=== PATIENT | female | born 1945 | race American Indian/Alaskan Native ===

== ENCOUNTER 2020-01-04 17:14 | Emergency (ER) | payer MEDICARE ==
[2020-01-04 17:25] VITALS: BP 137/67
--- NOTE | 2020-01-04 17:39 | Emergency Department Report ---
- General Chief Complaint: Upper Respiratory Infection Stated Complaint: COLD SYM Time Seen by Provider: 01/04/20 17:35 Source: patient Mode of arrival: Ambulatory Limitations: No Limitations - History of Present Illness Initial Comments: 74-year-old -Eth[place] female with a past medical history of hypertension GERD asthma and seasonal allergies presents to the emergency room for cough and cold symptoms for a week. Patient reports today she started wheezing and has had to use her nebulizer 2 times today. Patient reports she just been feeling kind of bad for about a week. Patient states that she is not sure if she is feeling back from the anniversary date of her son's or something is wrong with her. Patient denies any fever no nausea no vomiting no diarrhea no abdominal pain. MD Complaint: cough - Related Data Previous Rx's Medication Instructions Recorded Last Taken Type Azithromycin [Zithromax Z-BALJIT] 250 mg PO DAILY #6 tab 01/04/20 Unknown Rx Allergies Allergy/AdvReac Type Severity Reaction Status Date / Time No Known Allergies Allergy Unverified 01/04/20 17:17 ED Review of Systems ROS: Stated complaint: COLD SYM Other details as noted in HPI Comment: All other systems reviewed and negative ED Past Medical Hx - Past Medical History Previous Medical History?: Yes Hx Hypertension: Yes - Surgical History Past Surgical History?: No - Social History Smoking Status: Never Smoker Substance Use Type: Prescribed - Medications Home Medications: Home Medications Medication Instructions Recorded Confirmed Last Taken Type Azithromycin [Zithromax Z-BALJIT] 250 mg PO DAILY #6 tab 01/04/20 Unknown Rx ED Physical Exam - General Limitations: No Limitations General appearance: alert, in no apparent distress - Head Head exam: Present: atraumatic, normocephalic - Eye Eye exam: Present: normal appearance - ENT ENT exam: Present: mucous membranes moist - Respiratory Respiratory exam: Present: decreased breath sounds (Basis) - Cardiovascular Cardiovascular Exam: Present: tachycardia - GI/Abdominal GI/Abdominal exam: Present: soft, normal bowel sounds - Neurological Exam Neurological exam: Present: alert, oriented X3, normal gait - Psychiatric Psychiatric exam: Present: normal affect, normal mood - Skin Skin exam: Present: warm, dry, intact, normal color. Absent: rash ED Course Vital Signs 01/04/20 17:21 Temperature 98.4 F Pulse Rate 94 H Respiratory 20 Rate Blood Pressure 137/67 O2 Sat by Pulse 100 Oximetry ED Medical Decision Making - Lab Data Result diagrams: 01/04/20 17:46 01/04/20 17:46 - Radiology Data Radiology results: report reviewed Referring Physician:MITCHELL BACAPatient Name:SORAYA GRPatient ID:[id number] of :[id number]:FemaleAccession:[id number] Date:9-43[birth year]Sxsdwn Status:Finalized Findings [facility] [address] [place] [address] XRay Report Signed Patient: SORAYA GR MR#: [id number] : 1945 Acct:[id number] Age/Sex: 74 / F ADM Date: 01/04/20 Loc: ED Attending Dr: Ordering Physician: ASHUTOSH QUINTERO Date of Service: 01/04/20 Procedure(s): XR chest routine 2V Accession Number(s): [id number] cc: ASHUTOSH QUINTERO Fluoro Time In Minutes: CHEST 2 VIEWS INDICATION / CLINICAL INFORMATION: Coughing abnormal chest exam. COMPARISON: None available. FINDINGS: SUPPORT DEVICES: None. HEART / MEDIASTINUM: No significant abnormality. LUNGS / PLEURA: Inhomogeneous opacity is identified in the left lower lobe could represent acute pneumonia. No pneumothorax. ADDITIONAL FINDINGS: No significant additional findings. IMPRESSION: 1. Left lower lobe disease, pneumonia is suspected. Signer Name: Juan Manuel Chavez MD Signed: 01/04/2020 6:08 PM Workstation Name: [id number] Transcribed By: ADELA Dictated By: Juan Manuel Chavez MD Electronically Authenticated By: Juan Manuel Chavez MD Signed Date/Time: 01/04/201807 DD/ 07 TD/TT: - Medical Decision Making 74-year-old -Eth[place]ian female with a past medical history of hypertension GERD asthma and seasonal allergies presents to the emergency room for cough and cold symptoms for a week. Patient reports today she started wheezing and has had to use her nebulizer 2 times today. Patient reports she just been feeling kind of bad for about a week. Patient states that she is not sure if she is feeling back from the anniversary date of her son's or something is wrong with her. Patient denies any fever no nausea no vomiting no diarrhea no abdominal pain. Chest x-ray, CBC CMP Chest x-ray shows suspected left lower lung pneumonia labs are stable shows no elevated white count. Will discharge patient home to continue with her nebulizer treatments and place her on a azithromycin for community-acquired pneumonia. Instructed patient return back to the emergency room if she starts to have any worsening cough shortness of breath or fever. Critical care attestation.: If time is entered above; I have spent that time in minutes in the direct care of this critically ill patient, excluding procedure time. ED Disposition Clinical Impression: Community acquired pneumonia of left lower lobe of lung Disposition: DC-01 TO HOME OR SELFCARE Is pt being admited?: No Does the pt Need Aspirin: No Condition: Stable Instructions: Bacterial Pneumonia (ED) Additional Instructions: Continue with her nebulizer treatments and place her on a azithromycin for community-acquired pneumonia. Instructed patient return back to the emergency room if she starts to have any worsening cough shortness of breath or fever. Prescriptions: Azithromycin [Zithromax Z-BALJIT] 250 mg PO DAILY #6 tab Referrals: FABIEN AZEVEDO MD [Staff Physician] - 3-5 Days Your, provider [Other] - 3-5 Days
[2020-01-04 18:11] LABS: Basophils % (Auto) 0.6 % (0.0-1.8); Eosinophils # (Auto) 0.1 K/mm3 (0.0-0.4); Eosinophils % (Auto) 1.4 % (0.0-4.3); Hematocrit 35.3 % (30.3-42.9); Hemoglobin 11.8 gm/dl (10.1-14.3); Lymphocytes # (Auto) 2.5 K/mm3 (1.2-5.4); Lymphocytes % (Auto) 32.5 % (13.4-35.0); Mean Corpuscular HGB Conc 34 % (30-34); Mean Corpuscular Volume 95 fl (79-97); Monocytes # (Auto) 0.4 K/mm3 (0.0-0.8); Monocytes % (Auto) 5.2 % (0.0-7.3); Platelet Count 304 K/mm3 (140-440); Red Blood Count 3.73 M/mm3 (3.65-5.03); Red Cell Distribution Width 14.8 % (13.2-15.2)
[2020-01-04 18:13] LABS: Bilirubin,Urine NEG (Negative); Blood,Urine NEG (Negative); Color,Urine Yellow (Yellow); Mucus,Urine FEW /HPF; Protein,Urine <15 mg/dL mg/dL (Negative); Urobilinogen,Urine < 2.0 mg/dL (<2.0)
--- NOTE | 2020-01-04 18:13 | XRay Report ---
CHEST 2 VIEWS INDICATION / CLINICAL INFORMATION: Coughing abnormal chest exam. COMPARISON: None available. FINDINGS: SUPPORT DEVICES: None. HEART / MEDIASTINUM: No significant abnormality. LUNGS / PLEURA: Inhomogeneous opacity is identified in the left lower lobe could represent acute pneu monia. No pneumothorax. ADDITIONAL FINDINGS: No significant additional findings. IMPRESSION: 1. Left lower lobe disease, pneumonia is suspected. Signer Name: Juan Manuel Chavez MD Signed: 01/04/2020 6:08 PM Workstation Name: [id number]
[2020-01-04 18:33] LABS: Albumin 4.6 g/dL (3.9-5); Calcium 9.6 mg/dL (8.4-10.2)
== END 2020-01-04 19:50 | disposition home or self-care (01) ==
LOC: ED 17:14
DX: J18.9 Pneumonia, unspecified organism (principal); I10 Essential (primary) hypertension; J45.909 Unspecified asthma, uncomplicated; K21.9 Gastro-esophageal reflux disease without esophagitis; Z79.2 Long term (current) use of antibiotics
CPT/HCPCS: 36415; 71046; 80053; 81001; 85025; 87086

== ENCOUNTER 2020-07-19 12:08 | Emergency (ER) | payer MEDICARE ==
[2020-07-19 12:15] VITALS: BP 139/74
--- NOTE | 2020-07-19 13:00 | Event Note ---
ED Screening Note Date of service: 07/19/20 Time: 12:59 ED Screening Note: 75-year-old -[place] female comes in with abdominal pain. This initial assessment/diagnostic orders/clinical plan/treatment(s) is/are subject to change based on patients health status, clinical progression and re- assessment by fellow clinical providers in the ED. Further treatment and workup at subsequent clinical providers discretion. Patient/guardian urged not to elope from the ED as their condition may be serious if not clinically assessed and managed. Initial orders include: Labs have been ordered patient can be evaluated in ACC
[2020-07-19 13:22] LABS: Bilirubin,Urine NEG (Negative); Blood,Urine NEG (Negative); Color,Urine Yellow (Yellow); Mucus,Urine FEW /HPF; Protein,Urine <15 mg/dL mg/dL (Negative)
[2020-07-19 14:38] LABS: Basophils # (Auto) 0.1 K/mm3 (0.0-0.1); Basophils % (Auto) 1.2 % (0.0-1.8); Eosinophils # (Auto) 0.4 K/mm3 (0.0-0.4); Eosinophils % (Auto) 5.5 % (0.0-4.3); Hematocrit 34.2 % (30.3-42.9); Hemoglobin 11.5 gm/dl (10.1-14.3); Lymphocytes # (Auto) 2.6 K/mm3 (1.2-5.4); Lymphocytes % (Auto) 34.6 % (13.4-35.0); Mean Corpuscular HGB Conc 34 % (30-34); Mean Corpuscular Volume 94 fl (79-97); Monocytes # (Auto) 0.4 K/mm3 (0.0-0.8); Monocytes % (Auto) 5.3 % (0.0-7.3); Platelet Count 302 K/mm3 (140-440); Red Blood Count 3.65 M/mm3 (3.65-5.03); Red Cell Distribution Width 13.7 % (13.2-15.2)
[2020-07-19 14:54] LABS: Alanine Aminotransferase 8 units/L (7-56); Albumin 4.1 g/dL (3.9-5); BUN/Creatinine Ratio 11; Blood Urea Nitrogen 11 mg/dL (7-17); Calcium 9.5 mg/dL (8.4-10.2); Hemolysis Index 5
[2020-07-19 15:05] LABS: Bilirubin,Direct < 0.2 mg/dL (0-0.2)
--- NOTE | 2020-07-19 15:23 | Emergency Department Report ---
ED Abdominal Pain HPI - General Chief Complaint: Abdominal Pain Stated Complaint: STOMACH PAIN Time Seen by Provider: 07/19/20 14:43 Source: patient Mode of arrival: Ambulatory Limitations: No Limitations - History of Present Illness Initial Comments: 75-year-old female, history of hypertension, asthma, presents to ED with abdominal pain x2 weeks. Patient states she believes the pain is secondary to stress from living in an apartment with mold. Patient states she was supposed to have moved into a different apartment last month, however that will be happening until the end of this month. Patient states she has been stressed out because of this. She reports some mid abdominal pain. She denies any fever, vomiting, diarrhea. Patient states her appetite has been normal along with normal bowel movements. MD Complaint: abdominal pain -: week(s) (2) Location: epigastric Radiation: none Migration to: no migration Severity: moderate Quality: aching Consistency: intermittent Improves With: nothing Worsens With: nothing Associated Symptoms: denies: nausea, vomiting, diarrhea, fever, constipation, dysuria - Related Data Previous Rx's Medication Instructions Recorded Last Taken Type Azithromycin [Zithromax Z-BALJIT] 250 mg PO DAILY #6 tab 01/04/20 Unknown Rx hydrOXYzine PAMOATE [Vistaril] 25 mg PO Q6HR PRN #12 capsule 06/01/20 Unknown Rx Esomeprazole Magnesium [NexIUM] 40 mg PO QDAY #30 capsule. 07/19/20 Unknown Rx Sulfamethoxazole/Trimethoprim 1 each PO BID #6 tablet 07/19/20 Unknown Rx [Bactrim DS TAB] Allergies Allergy/AdvReac Type Severity Reaction Status Date / Time No Known Allergies Allergy Unverified 01/04/20 17:17 ED Review of Systems ROS: Stated complaint: STOMACH PAIN Other details as noted in HPI Comment: All other systems reviewed and negative Constitutional: denies: chills, fever Gastrointestinal: abdominal pain. denies: nausea, vomiting, diarrhea, constipation Genitourinary: denies: dysuria, frequency ED Past Medical Hx - Past Medical History Previous Medical History?: Yes Hx Hypertension: Yes Hx of Cancer: Yes (poss uterine) Additional medical history: Hard of hearing, Gastric ulcers - Surgical History Past Surgical History?: No - Social History Smoking Status: Never Smoker Substance Use Type: Prescribed - Medications Home Medications: Home Medications Medication Instructions Recorded Confirmed Last Taken Type Azithromycin [Zithromax Z-BALJIT] 250 mg PO DAILY #6 tab 01/04/20 Unknown Rx hydrOXYzine PAMOATE [Vistaril] 25 mg PO Q6HR PRN #12 capsule 06/01/20 Unknown Rx Esomeprazole Magnesium [NexIUM] 40 mg PO QDAY #30 capsule. 07/19/20 Unknown Rx Sulfamethoxazole/Trimethoprim 1 each PO BID #6 tablet 07/19/20 Unknown Rx [Bactrim DS TAB] ED Physical Exam - General Limitations: No Limitations General appearance: alert, in no apparent distress - Head Head exam: Present: atraumatic, normocephalic - Eye Eye exam: Present: normal appearance, EOMI - ENT ENT exam: Present: mucous membranes moist - Neck Neck exam: Present: normal inspection - Respiratory Respiratory exam: Present: normal lung sounds bilaterally. Absent: respiratory distress - Cardiovascular Cardiovascular Exam: Present: regular rate, normal rhythm - GI/Abdominal GI/Abdominal exam: Present: soft, tenderness (mild epigastric). Absent: distend ed - Extremities Exam Extremities exam: Present: normal inspection - Neurological Exam Neurological exam: Present: alert, oriented X3 - Psychiatric Psychiatric exam: Present: normal affect, normal mood - Skin Skin exam: Present: warm, dry, intact, normal color ED Course Vital Signs 07/19/20 12:12 Temperature 98.8 F Pulse Rate 88 Respiratory 15 Rate Blood Pressure 139/74 O2 Sat by Pulse 98 Oximetry ED Medical Decision Making - Lab Data Result diagrams: 07/19/20 14:28 07/19/20 14:28 - Radiology Data Radiology results: report reviewed, image reviewed - Medical Decision Making 75-year-old female with epigastric pain x2 weeks. Vital signs are normal. Labs are unremarkable. CT scan shows findings which may reflect gastritis. Patient was given a GI cocktail here in ED and reports relief of her pain. Patient will be discharged at this time. Advised outpatient follow-up with GI. Prescriptions will be given. Return precautions given. - Differential Diagnosis Gastritis, pancreatitis, cholecystitis Critical care attestation.: If time is entered above; I have spent that time in minutes in the direct care of this critically ill patient, excluding procedure time. ED Disposition Clinical Impression: Gastritis Disposition: DC-01 TO HOME OR SELFCARE Is pt being admited?: No Condition: Stable Instructions: Gastritis, Adult, [id number], Urinary Tract Infection, Adult, Abdominal Pain (ED) Prescriptions: Sulfamethoxazole/Trimethoprim [Bactrim DS TAB] 1 each PO BID #6 tablet Esomeprazole Magnesium [NexIUM] 40 mg PO QDAY #30 capsule. Referrals: PRIMARY CARE, [Primary Care Provider] - 3-5 Days [facility] [Provider Group] - 3-5 Days [facility] [Provider Group] - 3-5 Days Time of Disposition: 16:58
[2020-07-19] MEDS ORDERED: ALUM-MAG HYDROXIDE-SIMETHICONE 200-200-20MG/5ML ORAL LIQD 30 ML PO ONE (15:26)
[2020-07-19] MEDS ORDERED: LIDOCAINE VISCOUS 2% 15 ML ORAL LIQD PO ONE (15:26)
--- NOTE | 2020-07-19 16:38 | Cat Scan Report ---
CT ABDOMEN AND PELVIS WITHOUT CONTRAST INDICATION / CLINICAL INFORMATION: Abdominal pain. TECHNIQUE: Axial CT images were obtained through the abdomen and pelvis without IV contrast. All CT scans at [facility] location are performed using CT dose reduction for ALARA by means of automated exposure control. COMPARISON: Chest radiograph 01/04/2020 FINDINGS: LOWER CHEST: Bronchiectasis with peribronchial thickening and tree-in-bud nodularity within the left greater than right visualized lower lobes. This appears similar in distribution and extent to the pre viously seen opacity on prior radiograph from 12/2019. LIVER: No significant abnormality. GALLBLADDER: No significant abnormality. BILE DUCTS: No significant abnormality. PANCREAS: No significant abnormality. SPLEEN: No significant abnormality. ADRENALS: No significant abnormality. RIGHT KIDNEY and URETER: No significant abnormality. LEFT KIDNEY and URETER: No significant abnormality. STOMACH and SMALL BOWEL: There is prominent wall thickening involving the distal gastric body/pylorus region, with minimal adjacent stranding. Remaining small bowel is unremarkable in appearance. COLON: No significant abnormality. APPENDIX: No significant abnormality. PERITONEUM: No free fluid. No free air. No fluid collection. LYMPH NODES: No significant adenopathy. AORTA and ARTERIES: No significant abnormality. IVC and VEINS: No significant abnormality. URINARY BLADDER: No significant abnormality. REPRODUCTIVE ORGANS: Prior hysterectomy. No adnexal mass. ADDITIONAL FINDINGS: Multiple surgical clips in the pelvis. SKELETAL SYSTEM: Mild age-indeterminate wedge compression deformities of T11 and T12. IMPRESSION: 1. Prominent wall thickening involving the distal gastric body/pylorus with mild adjacent stranding m ay reflect gastritis, though upper endoscopy could be performed for further evaluation. No extralumin al air or fluid collection to suggest a perforated ulcer. 2. Bronchiectasis and peribronchial thickening with tree-in-bud nodularity in the left greater than r ight lower lobes. This appears similar in distribution to the previous opacity on chest radiograph fr om 12/2019, suggesting a chronic process, though clinical correlation is recommended. 3. Mild age-indeterminate wedge compression of T11 and T12. Signer Name: Gabby Alegria MD Signed: 07/19/2020 4:33 PM Workstation Name: [id number]
== END 2020-07-19 17:35 | disposition home or self-care (01) ==
LOC: ED 12:08
DX: K29.70 Gastritis, unspecified, without bleeding (principal); I10 Essential (primary) hypertension; Z79.2 Long term (current) use of antibiotics; Z79.899 Other long term (current) drug therapy
CPT/HCPCS: 36415; 74176; 80048; 80076; 81001; 83690; 85025; 87086

== ENCOUNTER 2020-10-19 12:33 | Emergency (ER) | payer MEDICARE ==
--- NOTE | 2020-10-19 12:45 | Event Note ---
ED Screening Note ED Screening Note: pt presents for epigastric abd pain that began a week ago she states it worsened since yesterday no n/v/d no fever no urinary symptoms she reports normal BMs no allergies to meds PMHx HTN, asthma, "nerve problem" non smoker This initial assessment/diagnostic orders/clinical plan/treatment(s) is/are subject to change based on patients health status, clinical progression and re- assessment by fellow clinical providers in the ED. Further treatment and workup at subsequent clinical providers discretion. Patient/guardian urged not to elope from the ED as their condition may be serious if not clinically assessed and managed. Initial orders include: labs, UA, XR, EKG
--- NOTE | 2020-10-19 13:35 | XRay Report ---
ABDOMINAL SERIES WITH CHEST X-RAY ONE VIEW HISTORY: Epigastric abdominal pain COMPARISON: None. FINDINGS: Chronic interstitial markings at the left lung base are unchanged since chest x-ray dated 01/04/2020. Otherwise the lungs are clear. Heart size is within normal limits. Supine and upright views the abdomen demonstrate no evidence for dilated bowel, fluid levels or free air. There is mild fecal retention in the colon. Surgical clips are noted in both sides of the pelvis , correlate with history. Signer Name: Saud Austin Jr, MD Signed: 10/19/2020 1:31 PM Workstation Name: [id number]
[2020-10-19 13:49] LABS: Basophils % (Auto) 0.6 % (0.0-1.8); Eosinophils % (Auto) 13.3 % (0.0-4.3); Hematocrit 32.7 % (30.3-42.9); Hemoglobin 11.5 gm/dl (10.1-14.3); Lymphocytes # (Auto) 2.5 K/mm3 (1.2-5.4); Lymphocytes % (Auto) 32.4 % (13.4-35.0); Mean Corpuscular HGB Conc 35 % (30-34); Mean Corpuscular Volume 93 fl (79-97); Monocytes # (Auto) 0.4 K/mm3 (0.0-0.8); Monocytes % (Auto) 4.7 % (0.0-7.3); Platelet Count 318 K/mm3 (140-440); Red Cell Distribution Width 14.3 % (13.2-15.2)
[2020-10-19 14:12] LABS: Alanine Aminotransferase 7 units/L (7-56); Albumin 4.1 g/dL (3.9-5); BUN/Creatinine Ratio 12; Blood Urea Nitrogen 12 mg/dL (7-17); Calcium 9.6 mg/dL (8.4-10.2); Hemolysis Index 0
[2020-10-19] MEDS ORDERED: ONDANSETRON 4 MG/2 ML INJ IV ONE (14:26)
[2020-10-19] MEDS ORDERED: MORPHINE 4 MG/1 ML INJ IV ONE (14:26)
[2020-10-19] MEDS ORDERED: FAMOTIDINE 20 MG/2 ML INJ IV ONE (14:27)
[2020-10-19 14:28] LABS: Bilirubin,Urine NEG (Negative); Blood,Urine NEG (Negative); Color,Urine Straw (Yellow); Protein,Urine <15 mg/dL mg/dL (Negative); RBC,Urine < 1.0 /HPF (0.0-6.0); Urobilinogen,Urine < 2.0 mg/dL (<2.0); WBC,Urine < 1.0 /HPF (0.0-6.0)
--- NOTE | 2020-10-19 14:32 | Emergency Department Report ---
ED Abdominal Pain HPI - General Chief Complaint: Abdominal Pain Stated Complaint: ABD PAIN Time Seen by Provider: 10/19/20 12:43 Source: patient, old records reviewed Mode of arrival: Ambulatory Limitations: No Limitations - History of Present Illness Initial Comments: 75-year-old female with a past medical history of gastritis identified on CT July 2020, hypertension, and hard of hearing presents to the hospital with complaints of epigastric pain since last week. Pain was initially intermittent but more constant last several days. Last week patient had several episodes of vomiting. She denies hematemesis, hematochezia, melena, fever, diarrhea, or dysuria. She currently takes Tylenol pain relievers as needed and denies NSAID use. When patient was here in July [address] abd/pelvis revealed Prominent wall thickening involving the distal gastric body/pylorus with mild adjacent stranding may reflect gastritis, though upper endoscopy could be performed for further evaluation. No extraluminal air or fluid collection to suggest a perforated ulcer2. Bronchiectasis and peribronchial thickening with tree-in-bud nodularity in the left greater than right lower lobes. This appears similar in distribution to the previous opacity on chest radiograph from 12/2019, suggesting a chronic process, though clinical correlation is recommended. 3. Mild age-indeterminate wedge compression of T11 and T12. Patient was discharged on Nexium x30 days. Patient has been unable to follow-up with PMD or GI physician since ED visit and is not currently taking any PPI or H2 bessy. Patient states she has had a previous hysterectomy with with questionable uterine cancer. Severity scale (0 -10): 7 - Related Data Previous Rx's Medication Instructions Recorded Last Taken Type Azithromycin [Zithromax Z-BALJIT] 1 dose PO DAILY 5 Days tab 10/19/20 Unknown Rx Mag Hydrox/Aluminum Hyd/Simeth 20 ml PO QID PRN #1 bottle 10/19/20 Unknown Rx [Maalox Advanced Suspension] Omeprazole Magnesium [PriLOSEC Otc] 20 mg PO QDAY #30 tablet. 10/19/20 Unknown Rx Ondansetron [Zofran Odt] 4 mg PO Q8HR PRN #20 tab.rapdis 10/19/20 Unknown Rx traMADoL [Ultram 50 MG tab] 50 mg PO Q6HR PRN #10 tablet 10/19/20 Unknown Rx Allergies Allergy/AdvReac Type Severity Reaction Status Date / Time No Known Allergies Allergy Verified 10/19/20 14:08 ED Review of Systems ROS: Stated complaint: ABD PAIN Other details as noted in HPI Comment: All other systems reviewed and negative ED Past Medical Hx - Past Medical History Previous Medical History?: Yes Hx Hypertension: Yes Additional medical history: Hard of hearing, Gastric ulcers - Surgical History Past Surgical History?: Yes Additional Surgical History: Hysterectomy - Social History Smoking Status: Never Smoker Substance Use Type: None - Medications Home Medications: Home Medications Medication Instructions Recorded Confirmed Last Taken Type Azithromycin [Zithromax Z-BALJIT] 1 dose PO DAILY 5 Days tab 10/19/20 Unknown Rx Mag Hydrox/Aluminum Hyd/Simeth 20 ml PO QID PRN #1 bottle 10/19/20 Unknown Rx [Maalox Advanced Suspension] Omeprazole Magnesium [PriLOSEC Otc] 20 mg PO QDAY #30 tablet. 10/19/20 Unknown Rx Ondansetron [Zofran Odt] 4 mg PO Q8HR PRN #20 tab.rapdis 10/19/20 Unknown Rx traMADoL [Ultram 50 MG tab] 50 mg PO Q6HR PRN #10 tablet 10/19/20 Unknown Rx ED Physical Exam - General Limitations: No Limitations - Other Other exam information: General: No acute distress Head: Atraumatic Eyes: normal appearance ENT: Moist mucous membranes Neck: Normal appearance, no midline tenderness Chest: Clear to auscultation bilaterally CV: Regular rate and rhythm Abdomen: Soft, normal bowel sounds, epigastric tenderness, nondistended, no rebound or guarding Back: Normal inspection Extremity: Normal inspection, full range of motion Neuro: Alert O x 3, no facial asymmetry, speech clear, no gross motor sensory deficit Psych: Appropriate behavior Skin: No rash ED Course Vital Signs 10/19/20 10/19/20 10/19/20 12:41 14:03 14:04 Temperature 99.6 F Pulse Rate 88 78 Respiratory 18 18 18 Rate Blood Pressure 149/74 [Left] Blood Pressure 174/87 [Right] O2 Sat by Pulse 100 100 100 Oximetry 10/19/20 10/19/20 15:02 15:31 Temperature Pulse Rate 89 78 Respiratory 18 16 Rate Blood Pressure [Left] Blood Pressure 178/80 183/89 [Right] O2 Sat by Pulse 97 100 Oximetry ED Medical Decision Making - Lab Data Result diagrams: 10/19/20 13:22 10/19/20 13:22 Lab Results 10/19/20 10/19/20 10/19/20 Range/Units 13:22 13:22 14:04 WBC 7.8 (4.5-11.0) K/mm3 RBC 3.50 L (3.65-5.03) M/mm3 Hgb 11.5 (10.1-14.3) gm/dl Hct 32.7 (30.3-42.9) % MCV 93 (79-97) fl MCH 33 H (28-32) pg MCHC 35 H (30-34) % RDW 14.3 (13.2-15.2) % Plt Count 318 (140-440) K/mm3 Lymph % (Auto) 32.4 (13.4-35.0) % [place] % (Auto) 4.7 (0.0-7.3) % Eos % (Auto) 13.3 H (0.0-4.3) % Baso % (Auto) 0.6 (0.0-1.8) % Lymph # (Auto) 2.5 (1.2-5.4) K/mm3 [place] # (Auto) 0.4 (0.0-0.8) K/mm3 Eos # (Auto) 1.0 H (0.0-0.4) K/mm3 Baso # (Auto) 0.0 (0.0-0.1) K/mm3 Seg Neutrophils % 49.0 (40.0-70.0) % Seg Neutrophils # 3.8 (1.8-7.7) K/mm3 Sodium 138 (137-145) mmol/L Potassium 5.1 H (3.6-5.0) mmol/L Chloride 101.7 (98-107) mmol/L Carbon Dioxide 28 (22-30) mmol/L Anion Gap 13 mmol/L BUN 12 (7-17) mg/dL Creatinine 1.0 (0.6-1.2) mg/dL Estimated GFR > 60 ml/min BUN/Creatinine Ratio 12 % Glucose 87 (65-100) mg/dL Calcium 9.6 (8.4-10.2) mg/dL Total Bilirubin 0.60 (0.1-1.2) mg/dL AST 15 (5-40) units/L ALT 7 (7-56) units/L Alkaline Phosphatase 75 (35-129) units/L Troponin T < 0.010 (0.00-0.029) ng/mL Total Protein 6.9 (6.3-8.2) g/dL Albumin 4.1 (3.9-5) g/dL Albumin/Globulin Ratio 1.5 % Lipase 45 (13-60) units/L Urine Color Straw (Yellow) Urine Turbidity Clear (Clear) Urine pH 7.0 (5.0-7.0) Ur Specific [place] 1.006 (1.003-1.030) Urine Protein <15 mg/dl (Negative) mg/dL Urine Glucose (UA) Neg (Negative) mg/dL Urine Ketones Neg (Negative) mg/dL Urine Blood Neg (Negative) Urine Nitrite Neg (Negative) Urine Bilirubin Neg (Negative) Urine Urobilinogen < 2.0 (<2.0) mg/dL Ur Leukocyte Esterase Neg (Negative) Urine WBC (Auto) < 1.0 (0.0-6.0) /HPF Urine RBC (Auto) < 1.0 (0.0-6.0) /HPF - EKG Data -: EKG Interpreted by Me ([facility]) EKG shows normal: sinus rhythm, ST-T waves (no stemi) Rate: normal - Radiology Data Radiology results: report reviewed ABDOMINAL SERIES WITH CHEST X-RAY ONE VIEW HISTORY: Epigastric abdominal pain COMPARISON: None. FINDINGS: Chronic interstitial markings at the left lung base are unchanged since chest x- ray dated 01/04/2020. Otherwise the lungs are clear. Heart size is within normal limits. Supine and upright views the abdomen demonstrate no evidence for dilated bowel, fluid levels or free air. There is mild fecal retention in the colon. Surgical clips are noted in both sides of the pelvis, correlate with history. CT ABDOMEN AND PELVIS WITH CONTRAST HISTORY: Epigastric pain COMPARISON: 07/19/2020 TECHNIQUE: Axial CT images were obtained through the abdomen and pelvis after 100 cc of IV contrast. Sagittal and coronal reformatted images. All CT scans at this location are performed using CT dose reduction for ALARA by means of automated exposure control. FINDINGS: CT ABDOMEN: Lung Bases: Patchy infiltrates have developed at both lung bases, left greater than right. No pleural effusion. Heart size is within normal limits. Liver: No significant abnormality. Biliary: No significant abnormality. Spleen: No significant abnormality. Unenlarged. Pancreas: No significant abnormality. Adrenals: No significant abnormality. Kidneys: No significant abnormality. Lymphatics: A mildly enlarged celiac axis lymph node measures 1.7 x 1.1 cm. No other adenopathy. Vasculature: No significant abnormality. Bowel/Peritoneum: A small hiatal hernia is identified. There is moderate diffuse thickening of the gastric antrum. The gastric wall measures up to 1.5 cm in thickness. No d iscrete mass, ulceration, free fluid or free air is detected. The small bowel loops and colon are normal caliber. A few scattered diverticula are noted in the right hemicolon. Normal appendix. CT PELVIS: : Hysterectomy. The bladder and distal ureters are unremarkable. Osseous Structures: Mild osteopenia. Degenerative changes in the lumbar spine. Additional Findings: None IMPRESSION: Diffuse thickening of the distal stomach suggesting antral gastritis. No focal ulceration or mass is appreciated. Mildly enlarged celiac axis lymph node. Bibasilar infiltrates, left greater than right. Correlate for pneumonia or aspiration. - Medical Decision Making 75-year-old female presents to the hospital planing of epigastric pain since last week with episodes of nausea vomiting last week that has since resolved. She does not report GI bleeding symptoms. CBC normal without anemia or leukocytosis. CMP including LFTs and lipase within normal range UA unrem arkable. In July patient had a scan showing gastritis which appears to persist as shown on today's CT scan. No signs of gastric ulcer perforation. Patient is not currently on a PPI, H2 bessy, or any stomach medication. Once again patient is noted to have bibasilar infiltrates left greater than right which have been previously called chronic processes. Patient reports a chronic cough that is unchanged without fever or shortness of breath. In the ED she was treated with morphine, Zofran, and Pepcid and subsequently Maalox and viscous lidocaine p.o. once CT resulted. Patient will be discharged on PPI nausea medication with intermittent Maalox as needed with instructions to follow-up with GI for endoscopy and further treatment. I have suspect that pulmonary findings of chronic given previous CAT scan results. Patient be covered with azithromycin x5 days given age and given that the CT reading has been compared to previous as per radiology note. Outpatient pulmonology referral provided. patient does not currently take NSAIDs and will be encouraged to continue Tylenol as needed. Critical Care Time: No Critical care attestation.: If time is entered above; I have spent that time in minutes in the direct care of this critically ill patient, excluding procedure time. ED Disposition Clinical Impression: Antral gastritis, Pulmonary infiltrate, Nausea and vomiting, Chronic cough Disposition: TO HOME OR SELFCARE Is pt being admited?: No Does the pt Need Aspirin: No Condition: Stable Instructions: Cough, Adult, [id number], Incidental Abnormal Radiological Finding, Gastritis, Adult, Abdominal Pain (ED) Additional Instructions: Take the medication as prescribed. Follow-up with your doctor or doctor/clinic provided. Make sure you follow-up with a GI doctor for further testing including endoscopy as discussed. When you run out of your Prilosec prescription you may take the [id number] version until you can receive a refill from your doctor. Return if symptoms worsen as indicated by your discharge instructions. Your CAT and x-rays today reveal possible pulmonary infiltrate/scarring of the lungs. Will cover with antibiotics today for infection due to your persistent cough. Follow-up with your doctor and embedder/lung specialist provided for further evaluation Prescriptions: Mag Hydrox/Aluminum Hyd/Simeth [Maalox Advanced Suspension] 20 ml PO QID PRN #1 bottle PRN Reason: Indigestion Omeprazole Magnesium [PriLOSEC Otc] 20 mg PO QDAY #30 tablet. traMADoL [Ultram 50 MG tab] 50 mg PO Q6HR PRN #10 tablet PRN Reason: Pain , Severe (7-10) Azithromycin [Zithromax Z-BALJIT] 1 dose PO DAILY 5 Days tab Ondansetron [Zofran Odt] 4 mg PO Q8HR PRN #20 tab.rapdis PRN Reason: Nausea And Vomiting Referrals: PRIMARY CARE, [Primary Care Provider] - 3-5 Days PENG LEON MD [Staff Physician] - 3-5 Days (GI doctor) SONJA SHELTON MD [Staff Physician] - 7-10 days (Lung specialist/embedder) Time of Disposition: 15:34
--- NOTE | 2020-10-19 15:04 | Cat Scan Report ---
CT ABDOMEN AND PELVIS WITH CONTRAST HISTORY: Epigastric pain COMPARISON: 07/19/2020 TECHNIQUE: Axial CT images were obtained through the abdomen and pelvis after 100 cc of IV contrast. Sagittal and coronal reformatted images. All CT scans at this location are performed using CT dose re duction for ALARA by means of automated exposure control. FINDINGS: CT ABDOMEN: Lung Bases: Patchy infiltrates have developed at both lung bases, left greater than right. No pleural effusion. Heart size is within normal limits. Liver: No significant abnormality. Biliary: No significant abnormality. Spleen: No significant abnormality. Unenlarged. Pancreas: No significant abnormality. Adrenals: No significant abnormality. Kidneys: No significant abnormality. Lymphatics: A mildly enlarged celiac axis lymph node measures 1.7 x 1.1 cm. No other adenopathy. Vasculature: No significant abnormality. Bowel/Peritoneum: A small hiatal hernia is identified. There is moderate diffuse thickening of the ga stric antrum. The gastric wall measures up to 1.5 cm in thickness. No discrete mass, ulceration, free fluid or free air is detected. The small bowel loops and colon are normal caliber. A few scattered d iverticula are noted in the right hemicolon. Normal appendix. CT PELVIS: : Hysterectomy. The bladder and distal ureters are unremarkable. Osseous Structures: Mild osteopenia. Degenerative changes in the lumbar spine. Additional Findings: None IMPRESSION: Diffuse thickening of the distal stomach suggesting antral gastritis. No focal ulceration or mass is appreciated. Mildly enlarged celiac axis lymph node. Bibasilar infiltrates, left greater than right. Correlate for pneumonia or aspiration. Signer Name: Saud Austin Jr, MD Signed: 10/19/2020 2:59 PM Workstation Name: [id number]
[2020-10-19] MEDS ORDERED: LIDOCAINE VISCOUS 2% 15 ML ORAL LIQD PO ONE (15:09)
[2020-10-19] MEDS ORDERED: ALUM-MAG HYDROXIDE-SIMETHICONE 200-200-20MG/5ML ORAL LIQD 30 ML PO ONE (15:09)
[2020-10-19 15:32] VITALS: BP 183/89
== END 2020-10-19 16:15 | disposition home or self-care (01) ==
LOC: ED 12:33
DX: K29.60 Other gastritis without bleeding (principal); R91.8 Other nonspecific abnormal finding of lung field; R11.2 Nausea with vomiting, unspecified; R05 Cough; I10 Essential (primary) hypertension; Z90.710 Acquired absence of both cervix and uterus; Z79.2 Long term (current) use of antibiotics; Z79.899 Other long term (current) drug therapy
CPT/HCPCS: 36415; 74022; 74177; 80053; 81001; 83690; 84484; 85025; 93005; 96374; 96375; 99285; J2270; J2405; Q9967

== ENCOUNTER 2021-05-08 20:10 | Emergency (ER) | payer MEDICARE ==
[2021-05-09 00:22] VITALS: BP 145/70
[2021-05-09] MEDS ORDERED: AMOXICILLIN/K CLAV 875/125MG TAB PO ONE (00:43)
[2021-05-09] MEDS ORDERED: ONDANSETRON 4 MG ODT TAB PO ONE (00:44)
[2021-05-09] MEDS ORDERED: IBUPROFEN 600 MG TAB PO ONE (00:44)
[2021-05-09] MEDS ORDERED: oxyCODONE /ACETAMINOPHEN 5-325MG TAB PO ONE (00:44)
[2021-05-09] MEDS ORDERED: FAMOTIDINE 20 MG TAB PO ONE (01:18)
--- NOTE | 2021-05-09 01:24 | Emergency Department Report ---
ED General Adult HPI - General Chief complaint: Earache Stated complaint: RT EARACHE/HEAD PAIN Source: patient Mode of arrival: Ambulatory Limitations: No Limitations - History of Present Illness Initial comments: Patient is a 75-year-old -[place] female with a history of gastric ulcers and hypertension as well as GERD who presents to the ED with complaint of acute onset persistent severe right ear pain for the last 2 days worse in the last 12 hours. Patient states that she has been taking over the counter Tylenol extra strength with no relief. Patient denies dizziness, syncope, headache, fever, chills, nasal and sinus congestion, traumatic injury, hearing loss, change in vision, sore throat, toothache, chest pain or shortness of breath and neck pain. MD Complaint: Right ear pain -: Sudden, days(s) (2) Location: face (right ear pain) Radiation: non-radiation Severity scale (0 -10): 7 Quality: aching, sharp Consistency: constant Improves with: none Worsens with: none Associated Symptoms: denies other symptoms. denies: confusion, chest pain, cough, diaphoresis, fever/chills, headaches, loss of appetite, malaise, nausea/vomiting, rash, seizure, shortness of breath, syncope, weakness, other Treatments Prior to Arrival: NSAID - Related Data Previous Rx's Medication Instructions Recorded Last Taken Type Azithromycin [Zithromax Z-BALJIT] 1 dose PO DAILY 5 Days tab 10/19/20 Unknown Rx Mag Hydrox/Aluminum Hyd/Simeth 20 ml PO QID PRN #1 bottle 10/19/20 Unknown Rx [Maalox Advanced Suspension] Omeprazole Magnesium [PriLOSEC Otc] 20 mg PO QDAY #30 tablet. 10/19/20 Unknown Rx Ondansetron [Zofran Odt] 4 mg PO Q8HR PRN #20 tab.rapdis 10/19/20 Unknown Rx Amoxicillin/Potassium Clav 1 each PO Q12H #20 tablet 05/09/21 Unknown Rx [Augmentin 875-125 Tablet] Ofloxacin 0.3% [Floxin 0.3% Otic] 1 - 2 drop OT BID #5 ml 05/09/21 Unknown Rx traMADoL [Ultram 50 MG tab] 50 mg PO Q6HR PRN #15 tablet 05/09/21 Unknown Rx Allergies Allergy/AdvReac Type Severity Reaction Status Date / Time No Known Allergies Allergy Verified 10/19/20 14:08 ED Review of Systems ROS: Stated complaint: RT EARACHE/HEAD PAIN Other details as noted in HPI Constitutional: denies: chills, fever Eyes: denies: eye pain, eye discharge, vision change ENT: ear pain (Severe right ear pain). denies: throat pain Respiratory: denies: cough, shortness of breath, wheezing Cardiovascular: denies: chest pain, palpitations Endocrine: no symptoms reported Gastrointestinal: denies: abdominal pain, nausea, diarrhea Genitourinary: denies: urgency, dysuria, discharge Musculoskeletal: denies: back pain, joint swelling, arthralgia Skin: denies: rash, lesions Neurological: denies: headache, weakness, paresthesias Psychiatric: denies: anxiety, depression Hematological/Lymphatic: denies: easy bleeding, easy bruising ED Past Medical Hx - Past Medical History Previous Medical History?: Yes Hx Hypertension: Yes Additional medical history: Hard of hearing, Gastric ulcers - Surgical History Past Surgical History?: Yes Additional Surgical History: Hysterectomy - Social History Smoking Status: Never Smoker Substance Use Type: None - Medications Home Medications: Home Medications Medication Instructions Recorded Confirmed Last Taken Type Azithromycin [Zithromax Z-BALJIT] 1 dose PO DAILY 5 Days tab 10/19/20 Unknown Rx Mag Hydrox/Aluminum Hyd/Simeth 20 ml PO QID PRN #1 bottle 10/19/20 Unknown Rx [Maalox Advanced Suspension] Omeprazole Magnesium [PriLOSEC Otc] 20 mg PO QDAY #30 tablet. 10/19/20 Unknown Rx Ondansetron [Zofran Odt] 4 mg PO Q8HR PRN #20 tab.rapdis 10/19/20 Unknown Rx Amoxicillin/Potassium Clav 1 each PO Q12H #20 tablet 05/09/21 Unknown Rx [Augmentin 875-125 Tablet] Ofloxacin 0.3% [Floxin 0.3% Otic] 1 - 2 drop OT BID #5 ml 05/09/21 Unknown Rx traMADoL [Ultram 50 MG tab] 50 mg PO Q6HR PRN #15 tablet 05/09/21 Unknown Rx ED Physical Exam - General Limitations: No Limitations General appearance: alert, in no apparent distress - Head Head exam: Present: atraumatic, normocephalic, normal inspection - Eye Eye exam: Present: normal appearance, PERRL, EOMI Pupils: Present: normal accommodation - ENT ENT exam: Present: normal orophraynx, mucous membranes moist, normal external ear exam, other (Mild erythematous bulging right tympanic membrane) - Neck Neck exam: Present: normal inspection, full ROM, lymphadenopathy (Palpable tenderness of anterior right cervical lymphadenopathy) - Respiratory Respiratory exam: Present: normal lung sounds bilaterally. Absent: respiratory distress, wheezes, rales, rhonchi, chest wall tenderness, accessory muscle use, prolonged expiratory - Cardiovascular Cardiovascular Exam: Present: regular rate, normal rhythm, normal heart sounds. Absent: systolic murmur, diastolic murmur, rubs, gallop - GI/Abdominal GI/Abdominal exam: Present: soft, normal bowel sounds. Absent: tenderness, guarding, rebound, hyperactive bowel sounds, hypoactive bowel sounds - Extremities Exam Extremities exam: Present: normal inspection, full ROM, normal capillary refill - Back Exam Back exam: Present: normal inspection, full ROM. Absent: tenderness, CVA tenderness (R), CVA tenderness (L), muscle spasm, paraspinal tenderness, vertebral tenderness - Neurological Exam Neurological exam: Present: alert, oriented X3, CN II-XII intact, normal gait, reflexes normal - Psychiatric Psychiatric exam: Present: normal affect, normal mood - Skin Skin exam: Present: warm, dry, intact, normal color. Absent: rash ED Course Vital Signs 05/09/21 00:21 Temperature 98.2 F Pulse Rate 67 Respiratory 16 Rate Blood Pressure 145/70 [Right] O2 Sat by Pulse 99 Oximetry ED Medical Decision Making - Medical Decision Making This is a 75-year-old -[place] female with a history of gastric ulcers and hypertension as well as GERD who presents to the ED with complaint of acute onset persistent severe right ear pain for the last 2 days worse in the last 12 hours. Patient states that she has been taking over the counter Tylenol extra strength with no relief. In the ED, patient is alert and oriented x3 and is not in any distress. Patient is hemodynamically stable, but appears to be in significant pain. Patient was treated for pain in the ED and given initial oral antibiotics in the ED. On reevaluation, patient's pain is well controlled medications. Patient will discharge home on pain medications and antibiotics and advised to follow-up with her primary care physician in 5 to 7 days for reevaluation or return to the ED immediately if symptoms get worse. - Differential Diagnosis Otitis media; otitis externa; otalgia; cervical lymphadenopathy Critical care attestation.: If time is entered above; I have spent that time in minutes in the direct care of this critically ill patient, excluding procedure time. ED Disposition Clinical Impression: Acute otitis media with effusion of right ear Disposition: HOME / SELF CARE / HOMELESS Is pt being admited?: No Does the pt Need Aspirin: No Condition: Stable Instructions: Ear Drops, Adult, [id number], Otitis Media, Adult, [id number] Additional Instructions: Take medication with food, drink plenty of fluids and follow-up with your primary care physician in 5 to 7 days for reevaluation. Return to the ED immediately if symptoms get worse. Prescriptions: Amoxicillin/Potassium Clav [Augmentin 875-125 Tablet] 1 each PO Q12H #20 tablet Ofloxacin 0.3% [Floxin 0.3% Otic] 1 - 2 drop OT BID #5 ml traMADoL [Ultram 50 MG tab] 50 mg PO Q6HR PRN #15 tablet PRN Reason: Pain , Severe (7-10) Referrals: [facility] [Provider Group] - 3-5 Days Time of Disposition: 01:25 Print Language: MARSHALLESE
== END 2021-05-09 03:52 | disposition home or self-care (01) ==
LOC: ED 20:10
DX: H65.191 Other acute nonsuppurative otitis media, right ear (principal); I10 Essential (primary) hypertension; Z79.899 Other long term (current) drug therapy; Z90.710 Acquired absence of both cervix and uterus
CPT/HCPCS: 99282; Q0162